=== PATIENT | female | born 1940 | race Two or more races ===

== ENCOUNTER 2023-10-11 17:32 | Inpatient (IN) | payer MEDICARE, OTHER ==
[~2023-10-11] VITALS: Ht 165.1 cm; Wt 45.4 kg
[2023-10-11] MEDS ORDERED: QUETIAPINE FUMARATE 25 MG TABLET PO ONE (19:00)
[2023-10-11 19:04] LABS: BASOPHILS # (AUTO) 0.1 K/UL (0.0-0.2); BASOPHILS % (AUTO) 1.2 % (0.0-2.0); EOSINOPHILS # (AUTO) 0.1 K/uL (0.0-0.7); EOSINOPHILS % (AUTO) 1.7 % (0.0-7.0); HEMATOCRIT 33.7 % (31.2-41.9); HEMOGLOBIN 11.6 g/dL (10.9-14.3); LYMPHOCYTES # (AUTO) 0.9 K/uL (0.8-4.8); LYMPHOCYTES % (AUTO) 18.4 % (20.5-51.5); MEAN CORPUSCULAR HEMOGLOBIN 31.2 uug (24.7-32.8); MEAN CORPUSCULAR HGB CONC 34 g/dL (32.3-35.6); MEAN CORPUSCULAR VOLUME 90.7 fL (75.5-95.3); MONOCYTES # (AUTO) 0.4 K/uL (0.1-1.30); MONOCYTES % (AUTO) 7.9 % (0.0-11.0); NEUTROPHILS # (AUTO) 3.5 K/uL (1.8-8.9); NEUTROPHILS % (AUTO) 70.8 % (38.5-71.5); PLATELET COUNT (AUTO) 219 K/uL (179-408); RED BLOOD CELL COUNT(AUTO) 3.71 MIL/uL (3.63-4.92); RED CELL DISTRIBUTION WIDTH 12.7 % (12.3-17.7)
[2023-10-11 19:18] LABS: DIFFERENTIAL COMMENT 1
[2023-10-11 19:30] LABS: ETHANOL < 3 MG/DL (0-10)
[2023-10-11 19:35] LABS: ALBUMIN 3.3 g/dL (3.4-5.0); ALKALINE PHOSPHATASE 115 U/L (50-136); ASPARTATE AMINOTRANSFERASE 10 U/L (15-37); BILIRUBIN,DIRECT 0.2 mg/dL (0.0-0.2); BILIRUBIN,TOTAL 0.6 mg/dL (0.2-1.0); CALCIUM 8.6 mg/dL (8.5-10.1); CARBON DIOXIDE 29 mmol/L (21-32); CHLORIDE 102 mmol/L (98-107); CREATININE 0.8 mg/dL (0.6-1.3); GLUCOSE 124 mg/dL (74-106); POTASSIUM 3.3 mmol/L (3.5-5.1); SODIUM SERUM 138 mmol/L (136-145); TOTAL PROTEIN, SERUM 6.6 g/dL (6.4-8.2); UREA NITROGEN, BLOOD 34 mg/dL (7-18)
[2023-10-11 19:42] LABS: ACETAMINOPHEN < 2.0 ug/mL (10-30); ALANINE AMINOTRANSFERASE < 6 U/L (14-59)
[2023-10-11] MEDS ORDERED: QUETIAPINE FUMARATE 25 MG TABLET ONE (20:30)
[2023-10-12] MEDS ORDERED: QUET25TA PO (05:22)
[2023-10-12] MEDS ORDERED: MIRT7.5T10 PO (05:22)
[2023-10-12] MEDS ORDERED: ACET325T53 PO (05:22)
[2023-10-12] MEDS ORDERED: PANT40TA49 PO (05:22)
[2023-10-12] MEDS ORDERED: LORA0.5T48 PO (05:22)
[2023-10-12] MEDS ORDERED: MAG-151 PO (05:22)
[2023-10-12] MEDS ORDERED: MAGN400O6 PO (05:22)
[2023-10-12] MEDS ORDERED: ENAL20TA18 PO (05:22)
[2023-10-12] MEDS ORDERED: ASPI81TA31 PO (05:22)
[2023-10-12] MEDS ORDERED: MAGNESIUM HYDROXIDE 30 ML LIQUID UDC PO PRN (05:30)
[2023-10-12] MEDS ORDERED: ACETAMINOPHEN 325 MG TABLET PO PRN (05:30)
[2023-10-12] MEDS ORDERED: MAG HYDROX/AL HYDROX/SIMETH 30 ML LIQUID UDC PO PRN (05:30)
[2023-10-12] MEDS: LORAZEPAM 1 MG TABLET PO PRN ×2 (05:39→20:04)
[2023-10-12 08:09] VITALS: BP 106/67; TEMP 98; O2SAT 97
[2023-10-12] MEDS ORDERED: OLANZAPINE 10 MG VIAL IM ONE (09:45)
[2023-10-12] MEDS: GABAPENTIN 100 MG CAPSULE PO SCH ×2 (12:28→17:31)
[2023-10-12 16:20] VITALS: BP 120/69; TEMP 98; O2SAT 97
[2023-10-12] MEDS: OLANZAPINE 2.5 MG TABLET PO SCH (17:30)
[2023-10-12 19:29] VITALS: BP 98/61; TEMP 98; O2SAT 97
[2023-10-12] MEDS: MIRTAZAPINE 15 MG TABLET PO SCH (21:09)
[2023-10-12] MEDS: ZOLPIDEM 5 MG TABLET PO PRN (22:26)
[2023-10-13] MEDS: LORAZEPAM 1 MG TABLET PO PRN ×3 (02:02→21:27)
[2023-10-13] MEDS: PANTOPRAZOLE SODIUM 40 MG TABLET.DR PO SCH (07:00)
[2023-10-13 07:58] LABS: ALANINE AMINOTRANSFERASE 9 U/L (14-59); ALKALINE PHOSPHATASE 118 U/L (50-136); ASPARTATE AMINOTRANSFERASE 18 U/L (15-37); BILIRUBIN,TOTAL 0.8 mg/dL (0.2-1.0); CARBON DIOXIDE 26 mmol/L (21-32); CHLORIDE 103 mmol/L (98-107); POTASSIUM 3.3 mmol/L (3.5-5.1); SODIUM SERUM 137 mmol/L (136-145); TOTAL PROTEIN, SERUM 7.2 g/dL (6.4-8.2)
[2023-10-13 08:00] VITALS: BP 104/58; TEMP 98.2; O2SAT 96
[2023-10-13 08:45] LABS: ALBUMIN 3.4 g/dL (3.4-5.0); CALCIUM 9.3 mg/dL (8.5-10.1); CREATININE 0.6 mg/dL (0.6-1.3); GLUCOSE 82 mg/dL (74-106); UREA NITROGEN, BLOOD 22 mg/dL (7-18)
[2023-10-13] MEDS: ENALAPRIL 10 MG TABLET PO SCH (09:00)
[2023-10-13] MEDS: OLANZAPINE 2.5 MG TABLET PO SCH ×2 (09:58→17:00)
[2023-10-13] MEDS: ASPIRIN 81 MG TAB.CHEW PO SCH (09:59)
[2023-10-13] MEDS: GABAPENTIN 100 MG CAPSULE PO SCH ×3 (09:59→17:00)
[2023-10-13] MEDS ORDERED: POTASSIUM CHLORIDE 20 MEQ TAB.PRT.SR PO ONE (10:00)
[2023-10-13 16:00] VITALS: BP 120/85; TEMP 98; O2SAT 99
[2023-10-13 20:00] VITALS: BP 120/74; TEMP 98; O2SAT 97
[2023-10-13] MEDS: MIRTAZAPINE 15 MG TABLET PO SCH (20:31)
[2023-10-13] MEDS: ZOLPIDEM 5 MG TABLET PO PRN (23:17)
[2023-10-14] MEDS: LORAZEPAM 1 MG TABLET PO PRN ×2 (06:33→12:19)
[2023-10-14] MEDS: PANTOPRAZOLE SODIUM 40 MG TABLET.DR PO SCH (06:34)
[2023-10-14 08:06] VITALS: BP 127/80; TEMP 98; O2SAT 94
[2023-10-14] MEDS: GABAPENTIN 100 MG CAPSULE PO SCH ×3 (08:24→17:01)
[2023-10-14] MEDS: OLANZAPINE 2.5 MG TABLET PO SCH ×2 (08:24→17:01)
[2023-10-14] MEDS: ASPIRIN 81 MG TAB.CHEW PO SCH (08:24)
[2023-10-14] MEDS: ENALAPRIL 10 MG TABLET PO SCH (08:25)
[2023-10-14] MEDS ORDERED: OLANZAPINE 10 MG VIAL IM ONE (14:30)
[2023-10-14 15:35] VITALS: BP 136/85; TEMP 98; O2SAT 96
[2023-10-14] MEDS: ENSURE ENLIVE (VAN) 240 ML LIQUID PO SCH (17:02)
[2023-10-14 20:00] VITALS: BP 153/108; TEMP 98; O2SAT 91
[2023-10-14] MEDS: MIRTAZAPINE 15 MG TABLET PO SCH (20:48)
[2023-10-15] MEDS: PANTOPRAZOLE SODIUM 40 MG TABLET.DR PO SCH (06:40)
[2023-10-15 07:54] VITALS: BP 150/92; TEMP 98.2; O2SAT 98
[2023-10-15] MEDS: LORAZEPAM 1 MG TABLET PO PRN (08:25)
[2023-10-15] MEDS: ASPIRIN 81 MG TAB.CHEW PO SCH (08:25)
[2023-10-15] MEDS: GABAPENTIN 100 MG CAPSULE PO SCH ×3 (08:25→16:49)
[2023-10-15] MEDS: ENSURE ENLIVE (VAN) 240 ML LIQUID PO SCH ×2 (08:31→16:50)
[2023-10-15] MEDS ORDERED: OLANZAPINE 2.5 MG TABLET PO SCH (09:00)
[2023-10-15] MEDS: ENALAPRIL 10 MG TABLET PO SCH (09:00)
[2023-10-15 09:06] LABS: *BLOOD, URINE NEGATIVE (NEGATIVE); *CLARITY,URINE CLEAR (CLEAR); *COLOR,URINE YELLOW (YELLOW); *KETONES,URINE NEGATIVE (NEGATIVE); *PROTEIN,URINE 2+ (NEGATIVE); *UROBILINOGEN,URINE 0.2 E.U./dl (NORMAL); LEUKOCYTE ESTERASE ,URINE NEGATIVE (NEGATIVE); NITRITE, URINE NEGATIVE (NEGATIVE); PH,URINE 5.5 (5.0-8.0); UGLUCOSE NEGATIVE (NEGATIVE)
[2023-10-15] MEDS: OLANZAPINE 5 MG TABLET PO SCH ×2 (10:21→16:49)
[2023-10-15 11:24] LABS: *BILIRUBIN,URIN 1+ (NEGATIVE)
[2023-10-15 12:38] LABS: BACTERIA,URINE NONE SEEN /HPF (NONE SEEN); RBC,URINE NONE SEEN /HPF (0-3); SQUAMOUS EPITHELIAL CELL,UR MODERATE /HPF (NONE SEEN)
[2023-10-15 15:29] VITALS: BP 137/75; TEMP 98.2; O2SAT 99
[2023-10-15 20:00] VITALS: BP 101/48; TEMP 98.1; O2SAT 99
[2023-10-15] MEDS: MIRTAZAPINE 15 MG TABLET PO SCH (20:09)
[2023-10-15] MEDS: ZOLPIDEM 5 MG TABLET PO PRN (22:57)
[2023-10-16] MEDS: PANTOPRAZOLE SODIUM 40 MG TABLET.DR PO SCH (06:18)
[2023-10-16 07:54] VITALS: BP 103/58; TEMP 98; O2SAT 98
[2023-10-16] MEDS: ENALAPRIL 10 MG TABLET PO SCH (09:00)
[2023-10-16] MEDS: OLANZAPINE 5 MG TABLET PO SCH ×2 (09:14→17:31)
[2023-10-16] MEDS: ASPIRIN 81 MG TAB.CHEW PO SCH (09:14)
[2023-10-16] MEDS: GABAPENTIN 100 MG CAPSULE PO SCH ×3 (09:14→17:31)
[2023-10-16] MEDS: ENSURE ENLIVE (VAN) 240 ML LIQUID PO SCH ×2 (09:15→17:32)
[2023-10-16] MEDS: LORAZEPAM 1 MG TABLET PO PRN (11:02)
[2023-10-16] MEDS ORDERED: OLANZAPINE 10 MG VIAL IM ONE (13:45)
[2023-10-16 15:24] VITALS: BP 96/75; TEMP 98; O2SAT 96
[2023-10-16 20:01] VITALS: BP 100/50; TEMP 97.8; O2SAT 95
[2023-10-16] MEDS: MIRTAZAPINE 15 MG TABLET PO SCH (20:33)
[2023-10-16] MEDS: ZOLPIDEM 5 MG TABLET PO PRN (22:07)
[2023-10-17] MEDS: PANTOPRAZOLE SODIUM 40 MG TABLET.DR PO SCH (06:52)
[2023-10-17] MEDS: LORAZEPAM 1 MG TABLET PO PRN ×2 (07:45)
[2023-10-17 08:06] VITALS: BP 141/78; TEMP 98.2; O2SAT 98
[2023-10-17] MEDS ORDERED: GABAPENTIN 100 MG CAPSULE PO SCH (09:00)
[2023-10-17] MEDS: ASPIRIN 81 MG TAB.CHEW PO SCH (09:18)
[2023-10-17] MEDS: OLANZAPINE 5 MG TABLET PO SCH ×2 (09:18→16:57)
[2023-10-17] MEDS: GABAPENTIN 300 MG CAPSULE PO SCH ×3 (09:19→16:57)
[2023-10-17] MEDS: ENALAPRIL 10 MG TABLET PO SCH (09:19)
[2023-10-17] MEDS: ENSURE ENLIVE (VAN) 240 ML LIQUID PO SCH ×2 (09:20→16:57)
[2023-10-17 15:36] VITALS: BP 90/55; TEMP 98; O2SAT 97
[2023-10-17] MEDS ORDERED: TRAZODONE 100 MG TABLET PO SCH (21:00)
[2023-10-18] VITALS (8 sets, daily range): BP systolic 78–125; BP diastolic 42–77; TEMP 98.1; O2SAT 96–98
[2023-10-18] MEDS ORDERED: MIDODRINE HCL 5 MG TABLET PO PRN (04:45)
[2023-10-18 06:57] LABS: BASOPHILS % (AUTO) 0.5 % (0.0-2.0); EOSINOPHILS # (AUTO) 0.1 K/uL (0.0-0.7); EOSINOPHILS % (AUTO) 0.9 % (0.0-7.0); HEMATOCRIT 34.5 % (31.2-41.9); HEMOGLOBIN 11.7 g/dL (10.9-14.3); LYMPHOCYTES # (AUTO) 0.6 K/uL (0.8-4.8); LYMPHOCYTES % (AUTO) 10.8 % (20.5-51.5); MEAN CORPUSCULAR HEMOGLOBIN 30.8 uug (24.7-32.8); MEAN CORPUSCULAR HGB CONC 34 g/dL (32.3-35.6); MEAN CORPUSCULAR VOLUME 91.1 fL (75.5-95.3); MONOCYTES # (AUTO) 0.5 K/uL (0.1-1.30); MONOCYTES % (AUTO) 8.9 % (0.0-11.0); NEUTROPHILS # (AUTO) 4.7 K/uL (1.8-8.9); NEUTROPHILS % (AUTO) 78.9 % (38.5-71.5); PLATELET COUNT (AUTO) 228 K/uL (179-408); RED BLOOD CELL COUNT(AUTO) 3.79 MIL/uL (3.63-4.92); WHITE BLOOD COUNT (AUTO) 5.9 K/uL (3.8-11.8)
[2023-10-18] MEDS: PANTOPRAZOLE SODIUM 40 MG TABLET.DR PO SCH (06:58)
[2023-10-18 07:00] LABS: DIFFERENTIAL COMMENT 1
[2023-10-18 07:17] LABS: CARBON DIOXIDE 29 mmol/L (21-32); CHLORIDE 103 mmol/L (98-107); CREATININE 1.2 mg/dL (0.6-1.3); GLUCOSE 117 mg/dL (74-106); POTASSIUM 4.1 mmol/L (3.5-5.1); SODIUM SERUM 141 mmol/L (136-145); UREA NITROGEN, BLOOD 41 mg/dL (7-18)
[2023-10-18 08:58] LABS: *BILIRUBIN,URIN NEGATIVE (NEGATIVE); *BLOOD, URINE NEGATIVE (NEGATIVE); *CLARITY,URINE CLEAR (CLEAR); *COLOR,URINE YELLOW (YELLOW); *KETONES,URINE NEGATIVE (NEGATIVE); *PROTEIN,URINE 2+ (NEGATIVE); *UROBILINOGEN,URINE 0.2 E.U./dl (NORMAL); LEUKOCYTE ESTERASE ,URINE NEGATIVE (NEGATIVE); NITRITE, URINE NEGATIVE (NEGATIVE); PH,URINE 5.5 (5.0-8.0); UGLUCOSE NEGATIVE (NEGATIVE)
[2023-10-18] MEDS: ENALAPRIL 10 MG TABLET PO SCH (09:00)
[2023-10-18] MEDS: OLANZAPINE 5 MG TABLET PO SCH ×3 (09:17→17:41)
[2023-10-18] MEDS: ASPIRIN 81 MG TAB.CHEW PO SCH (09:17)
[2023-10-18] MEDS: GABAPENTIN 300 MG CAPSULE PO SCH ×4 (09:17→17:41)
[2023-10-18] MEDS: ENSURE ENLIVE (VAN) 240 ML LIQUID PO SCH ×2 (09:18→17:43)
[2023-10-18 11:49] LABS: WBC,URINE 0-3 /HPF (0-3)
[2023-10-18 11:50] LABS: BACTERIA,URINE NONE SEEN /HPF (NONE SEEN); RBC,URINE 0-3 /HPF (0-3); SQUAMOUS EPITHELIAL CELL,UR MODERATE /HPF (NONE SEEN)
[2023-10-19] MEDS ORDERED: ASPI-866 PO (05:12)
[2023-10-19] MEDS ORDERED: PANT40TA49 PO (05:12)
[2023-10-19] MEDS ORDERED: MIDO5TAB4 GT (05:12)
[2023-10-19] MEDS ORDERED: OLAN5TAB70 PO (05:59)
[2023-10-19] MEDS ORDERED: GABA-532 PO (05:59)
[2023-10-19] MEDS ORDERED: TRAZ-257 PO (05:59)
[2023-10-19] MEDS ORDERED: MIRT7.5T10 PO (05:59)
== END 2023-10-18 23:42 | disposition short-term general hospital (02) | DRG 885 ==
LOC: ER 17:32 → GPS 10-12 05:10
PROVIDERS: ADMIT Psychiatry & Neurology Psychiatry; ATTEND Nurse Practitioner Acute Care
DX: F39 Unspecified mood [affective] disorder (principal); F03.911 Unspecified dementia, unspecified severity, with agitation; F03.92 Unspecified dementia, unspecified severity, with psychotic disturbance; F03.94 Unspecified dementia, unspecified severity, with anxiety; E87.6 Hypokalemia; E86.0 Dehydration; D64.9 Anemia, unspecified; E78.5 Hyperlipidemia, unspecified; I10 Essential (primary) hypertension
CPT/HCPCS: 36415; 85025; C1758; G0480; J2358

== ENCOUNTER 2023-10-18 18:53 | Inpatient (IN) | payer MEDICARE, OTHER ==
[~2023-10-18] VITALS: Ht 152.4 cm; Wt 47.6 kg
[~2023-10-18 18:53] MED LIST: ACET325T53 PO; ASPI81TA31 PO; ENAL20TA18 PO; MAG-151 PO; MAGN400O6 PO; PANT40TA49 PO
[2023-10-18] MEDS ORDERED: IV NORMAL SALINE 500 ML BAG IV ONE (19:00)
[2023-10-18] MEDS ORDERED: IV NORMAL SALINE 1000 ML BAG IV ONE (19:00)
[2023-10-18] MEDS ORDERED: CEFEPIME HCL 2 G in IV DEXTROSE 5% 100 ML IV ONE ×2 (19:15→19:45)
[2023-10-18 19:24] LABS: CALCIUM 9.1 mg/dL (8.5-10.1); CARBON DIOXIDE 24 mmol/L (21-32); CHLORIDE 104 mmol/L (98-107); CREATININE 1.2 mg/dL (0.6-1.3); GLUCOSE 130 mg/dL (74-106); SODIUM SERUM 141 mmol/L (136-145); UREA NITROGEN, BLOOD 46 mg/dL (7-18)
[2023-10-18 19:25] LABS: POTASSIUM 3.9 mmol/L (3.5-5.1)
[2023-10-18 19:29] LABS: BASOPHILS # (AUTO) 0.1 K/UL (0.0-0.2); BASOPHILS % (AUTO) 0.8 % (0.0-2.0); DIFFERENTIAL COMMENT 0; EOSINOPHILS # (AUTO) 0.1 K/uL (0.0-0.7); EOSINOPHILS % (AUTO) 1.2 % (0.0-7.0); HEMATOCRIT 35.8 % (31.2-41.9); MEAN CORPUSCULAR HEMOGLOBIN 31.1 uug (24.7-32.8); MEAN CORPUSCULAR HGB CONC 34 g/dL (32.3-35.6); MEAN CORPUSCULAR VOLUME 92.6 fL (75.5-95.3); MONOCYTES # (AUTO) 0.4 K/uL (0.1-1.30); MONOCYTES % (AUTO) 5.9 % (0.0-11.0); NEUTROPHILS # (AUTO) 4.9 K/uL (1.8-8.9); NEUTROPHILS % (AUTO) 76.1 % (38.5-71.5); PLATELET COUNT (AUTO) 262 K/uL (179-408); RED BLOOD CELL COUNT(AUTO) 3.86 MIL/uL (3.63-4.92); RED CELL DISTRIBUTION WIDTH 12.6 % (12.3-17.7); WHITE BLOOD COUNT (AUTO) 6.5 K/uL (3.8-11.8)
[2023-10-18 19:33] LABS: ALANINE AMINOTRANSFERASE 12 U/L (14-59); ALBUMIN 3.1 g/dL (3.4-5.0); ALKALINE PHOSPHATASE 127 U/L (50-136); ASPARTATE AMINOTRANSFERASE 24 U/L (15-37); BILIRUBIN,DIRECT 0.2 mg/dL (0.0-0.2); BILIRUBIN,TOTAL 0.7 mg/dL (0.2-1.0); TOTAL PROTEIN, SERUM 6.8 g/dL (6.4-8.2)
[2023-10-18 19:51] LABS: LACTIC ACID 3.8 mmol/L (0.4-2.0)
[2023-10-18] MEDS ORDERED: CEFEPIME HCL 1 G VIAL ONE (19:53)
[2023-10-18] MEDS ORDERED: IV NORMAL SALINE 500 ML IV ONE (20:45)
[2023-10-18 22:08] LABS: *BILIRUBIN,URIN NEGATIVE (NEGATIVE); *BLOOD, URINE NEGATIVE (NEGATIVE); *CLARITY,URINE CLEAR (CLEAR); *COLOR,URINE YELLOW (YELLOW); *KETONES,URINE NEGATIVE (NEGATIVE); *PROTEIN,URINE 1+ (NEGATIVE); *UROBILINOGEN,URINE 0.2 E.U./dl (NORMAL); LEUKOCYTE ESTERASE ,URINE NEGATIVE (NEGATIVE); NITRITE, URINE NEGATIVE (NEGATIVE); PH,URINE 5.5 (5.0-8.0); UGLUCOSE NEGATIVE (NEGATIVE)
[2023-10-18] MEDS ORDERED: IV NS 1000 ML 1,000 ML IV ONE (22:45)
[2023-10-19] MEDS ORDERED: MAG HYDROX/AL HYDROX/SIMETH 30 ML LIQUID UDC PO PRN (00:45)
[2023-10-19] MEDS ORDERED: ACETAMINOPHEN 325 MG TABLET PO PRN (00:45)
[2023-10-19] MEDS ORDERED: MAGNESIUM HYDROXIDE 30 ML LIQUID UDC PO PRN (00:45)
[2023-10-19 01:00] VITALS: BP 124/63; O2SAT 94
[2023-10-19] MEDS ORDERED: PANT40TA49 PO (05:12)
[2023-10-19] MEDS ORDERED: MIDO5TAB4 GT (05:12)
[2023-10-19] MEDS ORDERED: ASPI-866 PO (05:12)
[2023-10-19] MEDS ORDERED: MIRT7.5T10 PO (05:59)
[2023-10-19] MEDS ORDERED: GABA-532 PO (05:59)
[2023-10-19] MEDS ORDERED: OLAN5TAB70 PO (05:59)
[2023-10-19] MEDS ORDERED: TRAZ-257 PO (05:59)
[2023-10-19 07:55] VITALS: BP 140/80; TEMP 98; O2SAT 98
[2023-10-19] MEDS: GABAPENTIN 300 MG CAPSULE PO SCH ×2 (12:24→16:30)
[2023-10-19 16:04] VITALS: BP 108/58; TEMP 98.1; O2SAT 98
[2023-10-19] MEDS ORDERED: OLANZAPINE 5 MG TABLET PO SCH (17:00)
[2023-10-19 20:00] VITALS: BP 96/48; TEMP 98.2; O2SAT 96
[2023-10-19] MEDS: MIRTAZAPINE 15 MG TABLET PO SCH (20:47)
[2023-10-19] MEDS ORDERED: TRAZODONE 50 MG TABLET PO SCH (21:00)
[2023-10-20] MEDS: LORAZEPAM 1 MG TABLET PO PRN ×4 (01:28→21:34)
[2023-10-20 08:02] VITALS: BP 142/82; TEMP 98.7; O2SAT 98
[2023-10-20 09:33] LABS: ALANINE AMINOTRANSFERASE 16 U/L (14-59); ALBUMIN 3.2 g/dL (3.4-5.0); ALKALINE PHOSPHATASE 119 U/L (50-136); ASPARTATE AMINOTRANSFERASE 22 U/L (15-37); BILIRUBIN,TOTAL 0.6 mg/dL (0.2-1.0); CALCIUM 9.2 mg/dL (8.5-10.1); CARBON DIOXIDE 30 mmol/L (21-32); CHLORIDE 107 mmol/L (98-107); CREATININE 0.7 mg/dL (0.6-1.3); GLUCOSE 105 mg/dL (74-106); POTASSIUM 3.9 mmol/L (3.5-5.1); SODIUM SERUM 143 mmol/L (136-145); TOTAL PROTEIN, SERUM 6.9 g/dL (6.4-8.2); UREA NITROGEN, BLOOD 21 mg/dL (7-18)
[2023-10-20] MEDS: DIVALPROEX SPRINKLE 125 MG CAP.SPRINK PO SCH ×3 (09:37→16:24)
[2023-10-20 16:17] VITALS: BP 142/82; TEMP 98.5; O2SAT 98
[2023-10-20 20:00] VITALS: BP 133/76; TEMP 98.4; O2SAT 97
[2023-10-20] MEDS: MIRTAZAPINE 15 MG TABLET PO SCH (20:25)
[2023-10-20] MEDS ORDERED: QUETIAPINE FUMARATE 25 MG TABLET PO SCH (21:00)
[2023-10-20] MEDS: ZOLPIDEM 5 MG TABLET PO PRN (22:16)
[2023-10-21] MEDS: LORAZEPAM 1 MG TABLET PO PRN ×2 (02:12→07:08)
[2023-10-21 07:59] VITALS: BP 147/93; TEMP 98; O2SAT 98
[2023-10-21] MEDS: DIVALPROEX SPRINKLE 125 MG CAP.SPRINK PO SCH ×3 (08:38→17:41)
[2023-10-21 15:30] VITALS: BP 134/84; TEMP 98.2; O2SAT 98
[2023-10-21 20:00] VITALS: BP 120/78; TEMP 98.4; O2SAT 97
[2023-10-21] MEDS: QUETIAPINE FUMARATE 100 MG TABLET PO SCH (20:56)
[2023-10-21] MEDS ORDERED: QUETIAPINE FUMARATE 25 MG TABLET PO SCH (21:00)
[2023-10-22 07:44] VITALS: BP 100/59; TEMP 98.2; O2SAT 96
[2023-10-22] MEDS: DIVALPROEX SPRINKLE 125 MG CAP.SPRINK PO SCH ×3 (10:21→17:56)
[2023-10-22 15:35] VITALS: BP 96/64; TEMP 98.2; O2SAT 96
[2023-10-22 19:51] VITALS: BP 111/56; TEMP 98; O2SAT 95
[2023-10-22] MEDS: QUETIAPINE FUMARATE 100 MG TABLET PO SCH (21:06)
[2023-10-23 07:46] VITALS: BP 128/75; TEMP 98; O2SAT 98
[2023-10-23] MEDS: LORAZEPAM 1 MG TABLET PO PRN ×2 (08:48→14:01)
[2023-10-23] MEDS: DIVALPROEX SPRINKLE 125 MG CAP.SPRINK PO SCH ×3 (08:49→17:21)
[2023-10-23 15:02] VITALS: BP 136/79; TEMP 98; O2SAT 98
[2023-10-23 20:00] VITALS: BP 134/76; TEMP 97.9; O2SAT 96
[2023-10-23] MEDS: QUETIAPINE FUMARATE 100 MG TABLET PO SCH (20:07)
[2023-10-23] MEDS: ZOLPIDEM 5 MG TABLET PO PRN (22:13)
[2023-10-24] MEDS: LORAZEPAM 1 MG TABLET PO PRN ×2 (00:17→20:37)
[2023-10-24 08:38] VITALS: BP 112/61; TEMP 98; O2SAT 96
[2023-10-24] MEDS: DIVALPROEX SPRINKLE 125 MG CAP.SPRINK PO SCH ×3 (09:01→16:57)
[2023-10-24 15:07] VITALS: BP 131/81; TEMP 98.4; O2SAT 98
[2023-10-24 20:18] VITALS: BP 145/86; TEMP 98.1; O2SAT 99
[2023-10-24] MEDS: QUETIAPINE FUMARATE 100 MG TABLET PO SCH (20:37)
[2023-10-25 07:56] VITALS: BP 128/62; TEMP 98; O2SAT 96
[2023-10-25] MEDS: DIVALPROEX SPRINKLE 125 MG CAP.SPRINK PO SCH ×3 (10:57→17:23)
[2023-10-25] MEDS: QUETIAPINE FUMARATE 100 MG TABLET PO SCH (10:58)
[2023-10-25] MEDS: GLUCERNA SHAKE 237 ML CAN PO SCH (11:28)
[2023-10-25] MEDS: LORAZEPAM 1 MG TABLET PO PRN (13:31)
[2023-10-25 16:12] VITALS: BP 126/79; TEMP 98.7; O2SAT 97
[2023-10-25 20:00] VITALS: BP 147/77; TEMP 98.6; O2SAT 95
[2023-10-26 08:08] VITALS: BP 147/95; TEMP 98.9; O2SAT 97
[2023-10-26] MEDS: DIVALPROEX SPRINKLE 125 MG CAP.SPRINK PO SCH ×3 (09:45→16:23)
[2023-10-26] MEDS: GLUCERNA SHAKE 237 ML CAN PO SCH (09:46)
[2023-10-26] MEDS: LORAZEPAM 1 MG TABLET PO PRN (10:29)
[2023-10-26 16:42] VITALS: BP 148/85; TEMP 98.8; O2SAT 97
[2023-10-26 20:00] VITALS: BP 145/80; TEMP 98.7; O2SAT 92
[2023-10-26] MEDS: QUETIAPINE FUMARATE 100 MG TABLET PO SCH (22:06)
[2023-10-27 07:46] VITALS: BP 118/65; TEMP 98.4; O2SAT 97
[2023-10-27] MEDS: QUETIAPINE FUMARATE 25 MG TABLET PO SCH ×2 (08:38→16:07)
[2023-10-27] MEDS: DIVALPROEX SPRINKLE 125 MG CAP.SPRINK PO SCH ×4 (08:38→20:45)
[2023-10-27] MEDS: GLUCERNA SHAKE 237 ML CAN PO SCH (08:39)
[2023-10-27 16:08] VITALS: BP 128/79; TEMP 98.3; O2SAT 97
[2023-10-27 19:56] VITALS: BP 104/60; TEMP 98.2; O2SAT 99
[2023-10-27] MEDS: QUETIAPINE FUMARATE 100 MG TABLET PO SCH (20:45)
[2023-10-28 08:00] VITALS: BP 136/95; TEMP 98; O2SAT 98
[2023-10-28] MEDS: DIVALPROEX SPRINKLE 125 MG CAP.SPRINK PO SCH ×4 (09:17→21:06)
[2023-10-28] MEDS: GLUCERNA SHAKE 237 ML CAN PO SCH (09:17)
[2023-10-28] MEDS: QUETIAPINE FUMARATE 25 MG TABLET PO SCH ×2 (09:17→17:41)
[2023-10-28] MEDS: LORAZEPAM 1 MG TABLET PO PRN ×2 (12:13→19:42)
[2023-10-28 16:00] VITALS: BP 121/82; TEMP 98.1; O2SAT 99
[2023-10-28 19:33] VITALS: BP 131/77; TEMP 98.1; O2SAT 95
[2023-10-28] MEDS: QUETIAPINE FUMARATE 100 MG TABLET PO SCH (21:06)
[2023-10-29] MEDS: PANTOPRAZOLE SODIUM 40 MG TABLET.DR PO SCH (07:06)
[2023-10-29 08:00] VITALS: BP 132/88; TEMP 98.1; O2SAT 95
[2023-10-29] MEDS: ASPIRIN EC 81 MG TABLET.DR PO SCH (08:54)
[2023-10-29] MEDS: DIVALPROEX SPRINKLE 125 MG CAP.SPRINK PO SCH ×5 (08:54→21:24)
[2023-10-29] MEDS: QUETIAPINE FUMARATE 25 MG TABLET PO SCH ×2 (08:54→17:56)
[2023-10-29] MEDS: GLUCERNA SHAKE 237 ML CAN PO SCH (08:55)
[2023-10-29] MEDS: LORAZEPAM 1 MG TABLET PO PRN (20:25)
[2023-10-29 20:45] VITALS: BP 145/81; TEMP 98; O2SAT 99
[2023-10-29] MEDS: QUETIAPINE FUMARATE 100 MG TABLET PO SCH ×2 (21:00→21:24)
[2023-10-30] MEDS: PANTOPRAZOLE SODIUM 40 MG TABLET.DR PO SCH (06:39)
[2023-10-30 08:22] VITALS: BP 148/80; TEMP 97.6; O2SAT 97
[2023-10-30] MEDS: QUETIAPINE FUMARATE 25 MG TABLET PO SCH ×2 (08:25→17:42)
[2023-10-30] MEDS: ASPIRIN EC 81 MG TABLET.DR PO SCH (08:25)
[2023-10-30] MEDS: DIVALPROEX SPRINKLE 125 MG CAP.SPRINK PO SCH ×4 (08:25→21:10)
[2023-10-30] MEDS: REMEDY ESSENTIAL ZINC PASTE 113 GM TOP SCH ×2 (08:26→21:00)
[2023-10-30] MEDS: GLUCERNA SHAKE 237 ML CAN PO SCH (08:50)
[2023-10-30 16:40] VITALS: BP 131/72; TEMP 97.9; O2SAT 97
[2023-10-30] MEDS: QUETIAPINE FUMARATE 100 MG TABLET PO SCH (21:11)
[2023-10-30 21:37] VITALS: BP 102/62; TEMP 97.5; O2SAT 98
[2023-10-31] MEDS: PANTOPRAZOLE SODIUM 40 MG TABLET.DR PO SCH (06:17)
[2023-10-31 08:27] VITALS: BP 129/71; TEMP 97.6; O2SAT 99
[2023-10-31] MEDS: GLUCERNA SHAKE 237 ML CAN PO SCH (09:00)
[2023-10-31] MEDS: QUETIAPINE FUMARATE 25 MG TABLET PO SCH (09:29)
[2023-10-31] MEDS: ASPIRIN EC 81 MG TABLET.DR PO SCH (09:29)
[2023-10-31] MEDS: DIVALPROEX SPRINKLE 125 MG CAP.SPRINK PO SCH ×2 (09:29→13:11)
[2023-10-31] MEDS: REMEDY ESSENTIAL ZINC PASTE 113 GM TOP SCH (09:30)
== END 2023-10-31 16:14 | DRG 885 ==
LOC: ER 18:54 → GPS 23:47
PROVIDERS: ADMIT Psychiatry & Neurology Psychiatry; ATTEND Internal Medicine
DX: F39 Unspecified mood [affective] disorder (principal); F03.92 Unspecified dementia, unspecified severity, with psychotic disturbance; F03.94 Unspecified dementia, unspecified severity, with anxiety; E87.20 Acidosis, unspecified; F03.918 Unspecified dementia, unspecified severity, with other behavioral disturbance; E86.0 Dehydration; F20.0 Paranoid schizophrenia; E87.6 Hypokalemia; E78.5 Hyperlipidemia, unspecified; D64.9 Anemia, unspecified; I10 Essential (primary) hypertension; R62.7 Adult failure to thrive; Z68.20 Body mass index [BMI] 20.0-20.9, adult; Z79.899 Other long term (current) drug therapy
CPT/HCPCS: 36415; 71045; 80164; 83605; 84484; 85025; 85730; 87040; 93005; C1758; J0692; J7040

== ENCOUNTER 2023-10-18 18:55 | Emergency (ER) | payer MEDICARE, OTHER ==
[2023-10-19] MEDS ORDERED: MIDO5TAB4 GT (05:12)
[2023-10-19] MEDS ORDERED: ASPI-866 PO (05:12)
[2023-10-19] MEDS ORDERED: MIRT7.5T10 PO (05:59)
[2023-10-19] MEDS ORDERED: TRAZ-257 PO (05:59)
[2023-10-19] MEDS ORDERED: GABA-532 PO (05:59)
[2023-10-19] MEDS ORDERED: OLAN5TAB70 PO (05:59)
== END 2023-10-19 00:33 | disposition still patient (30) ==
LOC: ER 18:55
DX: E86.0 Dehydration (principal)
CPT/HCPCS: 80076; 80048; 81003; 85025; 85730; 87040 ×2; 84484; 36415; 93005; 71045; 83605 ×2; 99291; J0692; J7040 ×2; C1758